=== PATIENT | male | born 1980 | race Caucasian/White ===

== ENCOUNTER 2021-10-05 09:21 | Day surgery (SDC) | payer BC ==
[2021-10-05] VITALS (12 sets, daily range): BP systolic 110–127; BP diastolic 56–78
[~2021-10-05] VITALS: Ht 182 cm; Wt 68.0 kg
[2021-10-05] MEDS ORDERED: KETOROLAC 30 MG/ML VIAL IVP ONE (09:45)
[2021-10-05] MEDS ORDERED: NS IV 1000 ML 1,000 ML IV SCH ×3 (09:45→12:15)
--- NOTE | 2021-10-05 09:47 | ED Abdominal Pain ---
General Chief Complaint: Abdominal/GI Problems Stated Complaint: ABD PAIN Nursing Triage Note: PT AMB TO RM 6 WITH C/O RLQ PAIN X2 DAYS. PT STATES THE PAIN HURTS WORSE WHEN USING THE BATHROOM AND WAS WORSE LAST NIGHT WHILE TRYING TO SLEEP Source of Information: Patient Exam Limitations: No Limitations History of Present Illness Date Seen by Provider: Oct 05, 2021 Time Seen by Provider: 09:35 Initial Comments Patient is a 41-year-old male who presents to the emergency department today with a chief complaint of diffuse abdominal pain onset Sunday of this week. Tre agarwal has not taken anything for the pain. Patient endorses pain when he urinates and "pushes out" the urine. He was seen at [facility] clinic prior to this ER visit and advised to come for further evaluation. He has been intermittently nauseous. No vomiting. No diarrhea. Last bowel movement was yesterday. He states the pain comes in "waves". It radiates down into his pelvis. He has a history of GERD but is no longer on medications for this as of a month ago. No prior surgeries on his abdomen. He states that he did have some testicular pain with urination. No fevers or chills. He states his allergies have been "acting up". He has a slight cough. All other review of systems reviewed and negative except as stated. Timing/Duration: 2-3 Days Severity/Quality: Severe, Aching, Sharp Location: Generalized Abdomen Radiation: Other (pelvis) Modifying Factors: Worsens With Movement Associated Symptoms: Heartburn, Nausea/Vomiting Allergies and Home Medications Allergies Coded Allergies: No Known Drug Allergies (Unverified , 10/05/21) Patient Home Medication List Home Medication List Reviewed: Yes Review of Systems Review of Systems Constitutional: see HPI EENTM: No Symptoms Reported Respiratory: No Symptoms Reported Cardiovascular: No Symptoms Reported Gastrointestinal: Abdominal Pain, Nausea, Other (acid reflux) Musculoskeletal: no symptoms reported Skin: no symptoms reported Psychiatric/Neurological: No Symptoms Reported All Other Systems Reviewed Negative Unless Noted: Yes Past Cuhykrr-Fkxwtj-Njyhfk Hx Patient Social History Tobacco Use?: No Use of E-Cig and/or Vaping dev: No Substance use?: No Alcohol Use?: No Pt feels they are or have been: No Immunizations Up To Date Influenza Vaccine Up-to-Date: No; Not Current Past Medical History Surgery/Hospitalization HX: GERD NO SX HISTORY Physical Exam Vital Signs Vital Signs - First Documented 10/05/21 09:33 Temp 37.1 Pulse 68 Resp 16 B/P (MAP) 119/76 (90) Capillary Refill : Height/Weight/BMI Height: '" Weight: lbs. oz. kg; 20.00 BMI Method: General Appearance: WD/WN, no apparent distress, thin HEENT: PERRL/EOMI Respiratory: lungs clear, normal breath sounds, no respiratory distress, no accessory muscle use Cardiovascular: regular rate, rhythm Gastrointestinal: normal bowel sounds; No distended; tenderness (diffuse; + rebound; involuntary guarding; + heel tap) Extremities: normal range of motion, normal inspection Neurologic/Psychiatric: alert, normal mood/affect, oriented x 3 Skin: normal color, warm/dry Progress/Results/Core Measures Results/Orders Lab Results Laboratory Tests Test 10/05/21 09:46 10/05/21 11:06 Range/Units White Blood Count 15.6 H 4.3-11.0 10^3/uL Red Blood Count 4.14 L 4.30-5.52 10^6/uL Hemoglobin 14.4 13.3-17.7 g/dL Hematocrit 41 40-54 % Mean Corpuscular Volume 98 80-99 fL Mean Corpuscular Hemoglobin 35 H 25-34 pg Mean Corpuscular Hemoglobin Concent 36 32-36 g/dL Red Cell Distribution Width 11.1 10.0-14.5 % Platelet Count 240 130-400 10^3/uL Mean Platelet Volume 10.0 9.0-12.2 fL Immature Granulocyte % (Auto) 1 % Neutrophils (%) (Auto) 87 H 42-75 % Lymphocytes (%) (Auto) 6 L 12-44 % Monocytes (%) (Auto) 6 0-12 % Eosinophils (%) (Auto) 0 0-10 % Basophils (%) (Auto) 0 0-10 % Neutrophils # (Auto) 13.6 H 1.8-7.8 10^3/uL Lymphocytes # (Auto) 1.0 1.0-4.0 10^3/uL Monocytes # (Auto) 0.9 0.0-1.0 10^3/uL Eosinophils # (Auto) 0.0 0.0-0.3 10^3/uL Basophils # (Auto) 0.0 0.0-0.1 10^3/uL Immature Granulocyte # (Auto) 0.1 0.0-0.1 10^3/uL Neutrophils % (Manual) 89 % Lymphocytes % (Manual) 4 % Monocytes % (Manual) 6 % Band Neutrophils 1 % Blood Morphology Comment NORMAL Sodium Level 138 135-145 MMOL/L Potassium Level 3.9 3.6-5.0 MMOL/L Chloride Level 102 98-107 MMOL/L Carbon Dioxide Level 26 21-32 MMOL/L Anion Gap 10 5-14 MMOL/L Blood Urea Nitrogen 15 7-18 MG/DL Creatinine 1.18 0.60-1.30 MG/DL Estimat Glomerular Filtration Rate 80 BUN/Creatinine Ratio 13 Glucose Level 116 H 70-105 MG/DL Calcium Level 9.6 8.5-10.1 MG/DL Corrected Calcium 9.4 8.5-10.1 MG/DL Total Bilirubin 1.4 H 0.1-1.0 MG/DL Aspartate Amino Transf (AST/SGOT) 12 5-34 U/L Alanine Aminotransferase (ALT/SGPT) 14 0-55 U/L Alkaline Phosphatase 69 40-136 U/L Total Protein 7.5 6.4-8.2 GM/DL Albumin 4.3 3.2-4.5 GM/DL Urine Color YELLOW Urine Clarity CLEAR Urine pH 5.0 5-9 Urine Specific [place] 1.015 L 1.016-1.022 Urine Protein TRACE H NEGATIVE Urine Glucose (UA) NEGATIVE NEGATIVE Urine Ketones NEGATIVE NEGATIVE Urine Nitrite NEGATIVE NEGATIVE Urine Bilirubin NEGATIVE NEGATIVE Urine Urobilinogen 1.0 < = 1.0 MG/DL Urine Leukocyte Esterase NEGATIVE NEGATIVE Urine RBC (Auto) NEGATIVE NEGATIVE Urine RBC 0-2 /HPF Urine WBC 0-2 /HPF Urine Crystals PRESENT H /LPF Urine Amorphous Sediment MOD MIESHA URATES H /LPF Urine Bacteria NEGATIVE /HPF Urine Casts NONE /LPF Urine Mucus MODERATE H /LPF Urine Culture Indicated NO My Orders Orders - JULIET DIAZ MD Ed Iv/Invasive Line Start (10/05/21 09:43) Cbc With Automated Diff (10/05/21 09:43) Comprehensive Metabolic Panel (10/05/21 09:43) Ua Culture If Indicated (10/05/21 09:43) Ns Iv 1000 Ml (Sodium Chloride 0.9%) (10/05/21 09:45) Ketorolac Injection (Toradol Injection) (10/05/21 09:45) Manual Differential (10/05/21 09:46) Ct Abd/Pelv W (Appendicitis) (10/05/21 10:30) Iohexol Injection (Omnipaque 350 Mg/Ml 1 (10/05/21 10:45) Received Contrast (Hold Metformin- Contr (10/05/21 10:45) Ns (Ivpb) (Sodium Chloride 0.9% Ivpb Bag (10/05/21 10:45) Ns Iv 1000 Ml (Sodium Chloride 0.9%) (10/05/21 11:00) Ciprofloxacin Iv 400mg/200ml (Cipro Iv S (10/05/21 12:15) Metronidazole 500mg/100ml Ivpb (Flagyl 5 (10/05/21 12:15) Medications Given in ED Current Medications Medications Dose Ordered Sig/Desmond Route Start Time Stop Time Status Last Admin Dose Admin Iohexol 100 ml ONCE ONCE IV 10/05/21 10:45 10/05/21 10:46 DC 10/05/21 10:41 85 ML Ketorolac Tromethamine 15 mg ONCE ONCE IVP 10/05/21 09:45 10/05/21 09:46 DC 10/05/21 09:52 15 MG Sodium Chloride 100 ml ONCE ONCE IV 10/05/21 10:45 10/05/21 10:46 DC 10/05/21 10:41 80 ML Vital Signs/I&O 10/05/21 09:33 Temp 37.1 Pulse 68 Resp 16 B/P (MAP) 119/76 (90) Blood Pressure Mean: 90 Progress Progress Note : Time: 12:13 Progress Note Discussed results with the patient. Advised that he would need to have an appendectomy today. Dr. OLIVO request Cipro and Flagyl antibiotics as well as IV fluids. Patient is fairly comfortable and declines any narcotic pain medications. He states the Toradol has helped a little bit. It only hurts when he moves, strains coughs or laughs. Last oral intake was a few sips of water at 5:45 AM this morning and he ate prior to 5 PM yesterday evening. Diagnostic Imaging Diagonstic Imaging: CT Comments [facility] [place] NAME: MELIDA CHAPARRO [facility] REC#: [id number] PT STATUS: REG ER : 01/18/1967 PHYSICIAN: JULIET DIAZ MD ADMIT DATE: 10/05/21/ER Draft Date of Exam:10/05/21 ABDOMEN/KUB 1VIEW INDICATION: right flank pain. TECHNIQUE: Two supine views of the abdomen at 10:43 a.m. CORRELATION STUDY: 10/03/2021. FINDINGS: There is gas throughout the gastrointestinal tract with mild stool retention. Prominent gas-filled loops of small bowel are noted. Overall, this does limit assessment for potential calcifications. There is approximately 7 mm calcification projected over the approximately right 12th rib. Additionally, there is a questionable calcification projecting in the region of the right L4 transverse processes of approximately 4 to 5 mm. Phlebolith calcifications in the pelvis. Surgical clip projects over the left upper quadrant. IMPRESSION: 1. Rather prominent gas and stool throughout the gastrointestinal tract does limit assessment. 2. Questionable 7 mm calcification which may correspond to the recently identified right renal pelvis calcification with additional calcification which may very well be positioned in the region of the right ureter. Dictated on workstation # [id number] Dict: 10/05/21 1100 Trans: 10/05/21 1115 [id number] Interpreted by: SHAMA HENRY DO Electronically signed by: Departure Communication (Admissions) Time/Spoke to Consulting Phy: 12:[address] Olivo - will take to same day surgery Impression Primary Impression: Appendicitis Qualified Codes: K35.30 - Acute appendicitis with localized peritonitis, without perforation or gangrene Disposition: ADMITTED INPATIENT Condition: Stable Admissions Decision to Admit Reason: Admit from ER (General) Decision to Admit/Date: Oct 05, 2021 Time/Decision to Admit Time: 12:13 Departure-Patient Inst. Referrals: LATISHA FISCHER DO (PCP/Family) Primary Care Physician JULIET DIAZ MD Oct 05, 2021 09:47
[2021-10-05 09:54] LABS: BASOPHILS % (AUTO) 0 % (0-10); EOSINOPHILS % (AUTO) 0 % (0-10); HEMATOCRIT 41 % (40-54); HEMOGLOBIN 14.4 g/dL (13.3-17.7); LYMPHOCYTES % (AUTO) 6 % (12-44); MEAN CORPUSCULAR HEMOGLOBIN 35 pg (25-34); MEAN CORPUSCULAR HGB CONC 36 g/dL (32-36); MEAN CORPUSCULAR VOLUME 98 fL (80-99); MONOCYTES # (AUTO) 0.9 10^3/uL (0.0-1.0); MONOCYTES % (AUTO) 6 % (0-12); NEUTROPHILS # (AUTO) 13.6 10^3/uL (1.8-7.8); NEUTROPHILS % (AUTO) 87 % (42-75); PLATELET COUNT 240 10^3/uL (130-400); WHITE BLOOD COUNT 15.6 10^3/uL (4.3-11.0)
[2021-10-05 10:12] LABS: ALBUMIN 4.3 GM/DL (3.2-4.5); POTASSIUM 3.9 MMOL/L (3.6-5.0)
[2021-10-05 10:13] LABS: CALCIUM 9.6 MG/DL (8.5-10.1)
[2021-10-05 10:14] LABS: TOTAL PROTEIN 7.5 GM/DL (6.4-8.2)
[2021-10-05 10:16] LABS: BILIRUBIN,TOTAL 1.4 MG/DL (0.1-1.0)
[2021-10-05 10:17] LABS: BAND NEUTROPHILS 1 %; LYMPHOCYTES % (MANUAL) 4 %; MONOCYTES % (MANUAL) 6 %; NEUTROPHILS % (MANUAL) 89 %; RBC MORPH NORMAL
[2021-10-05 10:18] LABS: CREATININE SERUM 1.18 MG/DL (0.60-1.30)
[2021-10-05] MEDS ORDERED: IOHEXOL 350 MG/ML 100 ML (OMNIPAQUE 350) VIAL IV ONE (10:45)
[2021-10-05] MEDS ORDERED: HOLD METFORMIN - RECEIVED CONTRAST 20 ML VIAL IV SCH (10:45)
[2021-10-05] MEDS ORDERED: NS 100 ML (IVPB) BAG IV ONE (10:45)
--- NOTE | 2021-10-05 11:06 | Diagnostic Imaging Report ---
PROCEDURE: CT abdomen and pelvis with contrast, rule out appendicitis. TECHNIQUE: Multiple contiguous axial images were obtained through the abdomen and pelvis after the administration of intravenous contrast. All CT scans use one or more of the following dose optimizing techniques: automated exposure control, MA and/or KvP adjustment based on patient size and exam type or iterative reconstruction. INDICATION: Right lower quadrant abdominal pain. COMPARISON: None. FINDINGS: Wall thickening and mucosal hyperenhancement of the terminal ileum. The appendix is dilated up to 1.4 cm in diameter and also demonstrates mild mucosal enhancement but also contains normal-appearing air and stool. There is subtle inflammatory change in the mesentery about both the terminal ileum and the appendix. No fluid collections or free intraperitoneal air. No evidence of bowel obstruction. Large amount of stool throughout the colon, compatible with constipation. Diffuse bladder wall thickening. The lung bases are clear. The liver, gallbladder, pancreas, spleen, adrenals, kidneys, and collecting systems are negative. No acute osseous findings. IMPRESSION: 1. Wall thickening and enhancement of the terminal ileum, suspicious for inflammatory bowel disease. No evidence of bowel obstruction. No free intraperitoneal air or fluid. 2. The appendix is dilated to approximately 1.4 cm in diameter and demonstrates mild wall enhancement. There is also subtle inflammatory change in the adjacent mesentery. Findings are suspicious for appendicitis; however, given the wall thickening of the terminal ileum, these findings could possibly be related to inflammatory bowel disease as well. 3. Large amount of stool throughout the colon suggesting constipation. 4. Diffuse bladder wall thickening. Recommend correlation with urinalysis. Dictated by: Dictated on workstation # [id number]
[2021-10-05 11:12] LABS: BILIRUBIN,URINE NEGATIVE (NEGATIVE); CLARITY,URINE CLEAR; COLOR,URINE YELLOW; GLUCOSE, URINE (UA) NEGATIVE (NEGATIVE); KETONES,URINE NEGATIVE (NEGATIVE); LEUKOCYTE ESTERASE ,URINE NEGATIVE (NEGATIVE); NITRITE,URINE NEGATIVE (NEGATIVE); PROTEIN,URINE TRACE (NEGATIVE)
[2021-10-05 11:21] LABS: AMORPHOUS SEDIMENT,UR MOD AMOR URATES /LPF; BACTERIA,URINE NEGATIVE /HPF; RBC,URINE 0-2 /HPF; WBC,URINE 0-2 /HPF
[2021-10-05] MEDS: metroNIDAZOLE 500MG/100ML IVPB 100 ML IV ONE ×2 (12:20→15:00)
[2021-10-05] MEDS ORDERED: LIDOCAINE/EPI 2% 1:200,00 (XYLOCAINE) 20 ML VIAL ONE (12:47)
[2021-10-05] MEDS: CIPROFLOXACIN IV 400MG/200ML 200 ML IV ONE ×2 (13:17→15:12)
--- NOTE | 2021-10-05 13:29 | Progress Note-Pre Operative ---
Pre-Operative Progress Note H&P Reviewed The H&P was reviewed, patient examined and no changes noted. Date Seen by Provider: Oct 05, 2021 Time Seen by Provider: 13:30 Date H&P Reviewed: Oct 05, 2021 Time H&P Reviewed: 13:30 Pre-Operative Diagnosis: acute appendicitis ELPIDIO GLOVER MD Oct 05, 2021 13:29
--- NOTE | 2021-10-05 13:39 | HISTORY AND PHYSICAL ---
DATE OF SERVICE: ADMITTING PRIMARY CARE PHYSICIAN: Nancy Carbajal DO HISTORY OF PRESENT ILLNESS: The patient is a 41-year-old male who presented to the Emergency Department with pain for the past 3 days. He states that this was initially diffuse and was tolerable; however, this pain did persist and worsen over time. He was seen at [facility]. He states that the pain became more localized towards the right lower abdominal quadrant and states that this did become more severe as well sharp in nature. A CT scan was performed, which did show an extensive amount of stool within the colon and there is an inflammation of the appendix dilated to 1.4 cm consistent with an acute appendicitis. There were no signs of perforation. PAST MEDICAL HISTORY: Gastroesophageal reflux disease. PAST SURGICAL HISTORY: None. ALLERGIES: No known drug allergies. MEDICATIONS: An antacid. SOCIAL HISTORY: Negative smoke, negative alcohol. FAMILY HISTORY: Noncontributory. VITAL SIGNS: Temperature 37.1, blood pressure 119/76, pulse 68, respirations 16. REVIEW OF SYSTEMS: Well-nourished male currently in no acute distress. He is not experiencing any shortness of breath or difficulty breathing. No chest pain, palpitations, diaphoresis. Intermittent nausea, no vomiting, has had a history of constipation, no red blood per rectum, no dark tarry stools. No fever, chills, no recent inadvertent weight loss. All other review of systems negative. PHYSICAL EXAMINATION: CHEST: Clear. Good breath sounds bilaterally. HEART: Regular, no murmurs. EXTREMITIES: No lower extremity edema, negative Homans sign. HEENT: No scleral icterus. NECK: No cervical lymphadenopathy. ABDOMEN: Soft, nondistended. There is pain in the right lower abdominal quadrant at McBurney's point with voluntary guarding, no rebound. SKIN: Warm, dry. LABORATORY DATA: WBC 15.6, hemoglobin 14.4, hematocrit 41, platelets 240, BUN 15, creatinine 1.18. ASSESSMENT AND PLAN: A 41-year-old male with noncomplicated acute appendicitis. The natural history of this disease process was explained to the patient including the risks and benefits of surgery and he is in full understanding of this and would like to proceed with a diagnostic laparoscopy as well as laparoscopic appendectomy, which we will schedule. Once he is able to tolerate liquids, has good pain control with oral pain medications, ambulating well, we will discharge him home where he will be instructed to do no heavy lifting or exertion for the next two weeks. Job ID: [id number] DocumentID: [id number] Dictated Date: 10/05/2021 13:28:14 Aircraft Structural Design Engineer Date: 10/05/2021 13:38:25 Dictated By: ELPIDIO GLOVER MD
[2021-10-05] MEDS ORDERED: HYDR-3817 PO (14:58)
--- NOTE | 2021-10-05 14:58 | Discharge Inst-Surgical ---
D/C Lap Instructions-BELEN New, Converted, or Re-Newed RX: RX on Chart Follow Up Appt in 2 weeks Activity as tolerated No driving for 24 hours No driving while on pain medications Incentive Spirometry use every 2 hours while awake Regular Diet Symptoms to Report: Fever over 101 degree F, Nausea/Vomiting Infection Signs and Symptoms to report: Increased redness, Foul odor of wound, Increased drainage Bathing instructions: May shower Operative Area Clean/Dry; Keep incision clean/dry If any problems/questions: Contact your physician or go to Emergency Room ELPIDIO GLOVER MD Oct 05, 2021 14:58
[2021-10-05] MEDS ORDERED: ONDANSETRON 4 MG/2 ML (SDV) Z0FRAN IVP PRN ×2 (15:00→16:15)
[2021-10-05] MEDS ORDERED: ACETAMINOPHEN 325 MG TABLET PO PRN (15:00)
[2021-10-05] MEDS ORDERED: oxyCODONE/APAP 5/325MG (PERCOCET 5) TABLET PO PRN (15:00)
[2021-10-05] MEDS ORDERED: morphine INJ 10 MG/ML 1ML (SYR OR VIAL) IVP PRN ×2 (15:00)
[2021-10-05] MEDS ORDERED: ONDANSETRON 4 MG/2 ML (SDV) Z0FRAN ONE (15:02)
[2021-10-05] MEDS ORDERED: SEVOFLURANE (ULTANE) 15 ML INHAL SOLN ONE ×2 (15:02→15:46)
[2021-10-05] MEDS ORDERED: LIDOCAINE PF 2% 5 ML (XYLOCAINE) VIAL ONE (15:02)
[2021-10-05] MEDS ORDERED: proPOfol 200 MG/20 ML (DIPRIVAN) VIAL IV ONE (15:02)
[2021-10-05] MEDS ORDERED: fentaNYL INJ 100 MCG/2 ML AMP ONE (15:03)
[2021-10-05] MEDS ORDERED: MIDAZOLAM 2 MG/2 ML (VERSED) VIAL ONE (15:03)
[2021-10-05] MEDS ORDERED: GLYCOPYRROLATE 0.2 MG/ML (ROBINUL) 2 ML VIAL ONE ×2 (15:26→15:45)
[2021-10-05] MEDS ORDERED: ATROPINE INJ 0.4 MG/ML SDV ONE (15:30)
[2021-10-05] MEDS ORDERED: NEOSTIGMINE (BLOXIVERZ ) 1 MG/1ML 10 ML VIAL ONE (15:44)
[2021-10-05] MEDS ORDERED: KETOROLAC 30 MG/ML VIAL ONE (15:45)
[2021-10-05] MEDS ORDERED: ROCURONIUM 50 MG/5 ML (ZEMURON) VIAL IV ONE (15:46)
[2021-10-05] MEDS ORDERED: metroNIDAZOLE 500MG/100ML IVPB 100 ML IV NR (16:00)
[2021-10-05] MEDS ORDERED: CIPROFLOXACIN IV 400MG/200ML 200 ML IV NR (16:00)
--- NOTE | 2021-10-05 16:04 | Progress Note-Post Operative ---
Post-Operative Progess Note Surgeon (s)/Soil Specialist (s) Surgeon ELPIDIO GLOVER MD Soil Specialist: none Pre-Operative Diagnosis acute appendicitis Post-Operative Diagnosis same Procedure & Operative Findings Date of Procedure 10/05/21 Procedure Performed/Findings laparoscopic appendectomy. Anesthesia Type get Estimated Blood Loss Estimated blood loss (mL): minimal Specimens/Packing Specimens Removed appendix ELPIDIO GLOVER MD Oct 05, 2021 16:04
[2021-10-05] MEDS ORDERED: HYDROmorphone 2 MG/ML VIAL (DILAUDID) IV ONE (16:15)
--- NOTE | 2021-10-05 16:40 | Anesthesia-General Post-Op ---
General Patient Condition Mental Status/LOC: Same as Preop Cardiovascular: Satisfactory Nausea/Vomiting: Absent Respiratory: Satisfactory Pain: Controlled Complications: Absent Post Op Complications Complications None Follow Up Care/Instructions Patient Instructions None needed. Anesthesia/Patient Condition Patient Condition Patient is doing well, no complaints, stable vital signs, no apparent adverse anesthesia problems. No complications reported per nursing. D/C home per [facility] Criteria: Yes ELDER MEI CRNA Oct 05, 2021 16:40
--- NOTE | 2021-10-06 01:11 | OPERATIVE REPORT ---
DATE OF SERVICE: 10/05/2021 ATTENDING PRIMARY CARE PHYSICIAN: Nancy Carbajal DO PREOPERATIVE DIAGNOSIS: Acute appendicitis. POSTOPERATIVE DIAGNOSIS: Acute appendicitis. No perforation. PROCEDURE: Laparoscopic appendectomy. SURGEON: Elpidio Glover MD. ANESTHESIA: General endotracheal. ESTIMATED BLOOD LOSS: Minimal. FINDINGS: Inflamed appendix, no perforation. DISPOSITION: The patient tolerated the procedure well. INDICATIONS: The patient is a 41-year-old male with a 3-day history of pain, which was initially diffuse throughout the abdomen; however, became more localized towards the right lower abdominal quadrant. This was associated with nausea; however, no vomiting. He also states loss of appetite during this timeframe. He does not report any episodes of diarrhea as well as no red blood per rectum nor any dark tarry stools. A CT scan was performed, which did show dilatation of the appendix at 1.4 cm consistent with acute appendicitis. DESCRIPTION OF PROCEDURE: The patient was brought to the operating room, laid supine on the table. After adequate IV pain and sedative medications and general endotracheal intubation, abdomen was prepped and draped in standard surgical fashion. The left upper abdominal quadrant was then anesthetized using 0.5% Marcaine with epinephrine and a transverse skin incision made using a 15 blade. Veress needle inserted with a low opening pressure of 0 mmHg and the abdomen was then insufflated to 15 mmHg pressure. The Veress needle removed and a 5 mm XL trocar placed followed by a 5 mm 45-degree angle laparoscope visualizing the peritoneal cavity. A 4-quadrant abdominal exploration was performed. There was an inflamed appendix, no perforation, remainder of the colon and small bowel appeared normal with no other inflammatory changes. Under direct visualization, we then proceeded to place a supraumbilical 10 mm port after the skin and peritoneal lining were anesthetized using 0.5% Marcaine with epinephrine and a transverse skin incision made using 15 blade. In a similar manner, a suprapubic 10 mm port was placed. The patient was then placed in Trendelenburg position as well as plane right side up, left side down. The appendix was then gently dissected out and retracted towards the anterior abdominal wall. A window was then created between the base of the appendix and the mesoappendix using a [place] dissector. The appendix was then stapled and transected at the cecal base using a KENIA 45 mm stapler with a 2.5 mm thickness load. The mesoappendix was then stapled and transected with the same stapler with a 2.0 mm thickness reload with visualization of good hemostasis. The appendix was removed through the 10 mm port site using an EndoCatch bag. The area was then irrigated and suctioned out. The 10 mm port site fascia and peritoneum were then closed under direct visualization using a Zeferino-Safia device and 0 Vicryl suture. The abdomen was then desufflated and remaining ports removed. All skin incisions were closed using 4-0 Monocryl running subcuticular sutures. Wounds were then cleaned and covered with Dermabond. The patient tolerated the procedure well. We will start IV normal pain medication as well as a clear liquid diet. Once he is tolerating clears, has good pain control with oral pain medications, ambulating well, we will discharge him home where he will be instructed to do no heavy lifting or exertion for the next two weeks. Job ID: [id number] DocumentID: [id number] Dictated Date: 10/05/2021 16:11:06 Carburetor Mechanic Date: 10/06/2021 01:11:14 Dictated By: ELPIDIO GLOVER MD
== END 2021-10-05 18:05 | disposition home or self-care (01) ==
LOC: ER 09:26 → SDC 13:30
PROVIDERS: ATTEND Surgery
DX: K35.80 Unspecified acute appendicitis (principal); Z28.310 Unvaccinated for COVID-19
CPT/HCPCS: 36415; 74177; 80053; 81000; 85007; 85027; 88304; 96361; 96374